=== PATIENT | female | born 1980 | race Caucasian/White ===

== ENCOUNTER 2018-05-09 13:57 | Outpatient (CLI) | payer OTHER, BC | END 2018-05-09 13:58 | disposition home or self-care (01) | DRG 561 | LOC: CONVCARE 13:57 | PROVIDERS: ATTEND Orthopaedic Surgery | DX: S82.61XD Displaced fracture of lateral malleolus of right fibula, subsequent encounter for closed fracture with routine healing (principal) | CPT/HCPCS: 73610 ==